=== PATIENT | female | born 1955 | race Caucasian/White ===

== ENCOUNTER 2021-11-30 11:28 | Day surgery (SDC) | payer MEDICARE, OTHER ==
[~2021-11-30] VITALS: Ht 160 cm; Wt 69.7 kg
[2021-11-30 11:57] VITALS: BP 128/81
[2021-11-30] MEDS ORDERED: normal saline 1000ml 1,000 ML IV PRN (12:00)
[2021-11-30] MEDS ORDERED: LISI5TAB22 PO (12:03)
[2021-11-30] MEDS ORDERED: OXYC5TAB2 PO (12:03)
[2021-11-30] MEDS ORDERED: IBUP-1985 PO (12:03)
[2021-11-30] MEDS ORDERED: SENN-263 PO (12:03)
[2021-11-30] MEDS ORDERED: heparin sodium, porcine/PF 100unit/ml 5ML syringe ONE (13:18)
[2021-11-30] MEDS ORDERED: LIDOcaine 1%/PF 5ML 10 MG/ML VIAL ONE (13:18)
[2021-11-30] MEDS ORDERED: midazolam 1 mg/ML 2ml injection ONE ×2 (13:19→13:51)
[2021-11-30] MEDS ORDERED: fentaNYL/PF 50MCG/1 ML 2ML syringe ONE ×2 (13:19→13:51)
[2021-11-30] MEDS ORDERED: ondansetron/PF 4mg/2ml inj ONE (14:20)
[2021-11-30 14:24] VITALS: BP 146/92
[2021-11-30 14:30] VITALS: BP 133/94
[2021-11-30 14:45] VITALS: BP 131/89
[2021-11-30 15:00] VITALS: BP 136/95
[2021-11-30] MEDS ORDERED: proCHLORperazine 25mg suppository RC PRN (15:00)
[2021-11-30 15:15] VITALS: BP 134/91
== END 2021-11-30 15:30 | disposition home or self-care (01) ==
LOC: SSTAY O 11:28
PROVIDERS: ATTEND Radiology Vascular & Interventional Radiology
DX: C56.9 Malignant neoplasm of unspecified ovary (principal); Z79.899 Other long term (current) drug therapy; Z91.040 Latex allergy status; Z88.0 Allergy status to penicillin
CPT/HCPCS: 36561; 76937; 77001; 99152; 99153; C1788; C1894; J1642; J2250; J2405; J3010; J3490; J7030; A4620

== ENCOUNTER 2021-12-15 08:25 | Day surgery (SDC) | payer MEDICARE, OTHER ==
[~2021-12-15] VITALS: Ht 160 cm; Wt 70.3 kg
[2021-12-15] VITALS (7 sets, daily range): BP systolic 128–146; BP diastolic 86–95
[~2021-12-15 08:25] MED LIST: IBUP-1985 PO; LISI5TAB22 PO; OXYC5TAB2 PO; SENN-263 PO
[2021-12-15] MEDS ORDERED: LIDOcaine 1% 30ml preserv. free vial SQ STA (08:34)
[2021-12-15] MEDS ORDERED: APIX5TAB3 PO (09:01)
[2021-12-15] MEDS ORDERED: TRAM50TA2 PO (09:03)
[2021-12-15] MEDS ORDERED: DULO20CA50 PO (09:04)
[2021-12-15] MEDS ORDERED: albumin 25% 100mL bottle x 1 IV PRN (09:05)
== END 2021-12-15 11:20 | disposition home or self-care (01) ==
LOC: SSTAY O 08:25
PROVIDERS: ATTEND Radiology Diagnostic Radiology
DX: C56.9 Malignant neoplasm of unspecified ovary (principal); J91.0 Malignant pleural effusion; Z88.0 Allergy status to penicillin; Z91.040 Latex allergy status; Z79.899 Other long term (current) drug therapy; Z98.890 Other specified postprocedural states
CPT/HCPCS: 32555; 87811; A4615